=== PATIENT | female | born 2005 | race Hispanic/Latino ===

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

== ENCOUNTER 2024-12-25 22:33 | Emergency (ER) | payer MEDICAID ==
[~2024-12-25] VITALS: Ht 165.1 cm; Wt 130.2 kg
[2024-12-25 23:05] LABS: RAPID GROUP A STREP negative (NEGATIVE)
[2024-12-25 23:07] LABS: SARS-CoV-2, RNA, NAAT NEGATIVE SARS CoV-2 (NEGATIVE)
[2024-12-25 23:12] LABS: INFLUENZA TYPE A Negative For Type A (NEGATIVE); INFLUENZA TYPE B Negative For Type B (NEGATIVE)
[2024-12-25 23:30] LABS: APPEARANCE,URINE CLEAR (CLEAR); BILIRUBIN,URINE NEGATIVE (NEGATIVE); COLOR,URINE LIGHT-YELLOW (YELLOW); GLUCOSE, URINE (UA) NEGATIVE (NEGATIVE); HCG,QUALITATIVE URINE NEGATIVE (NEGATIVE); KETONES,URINE NEGATIVE (NEGATIVE); LEUKOCYTE ESTERASE ,URINE 25 Leu/uL (NEGATIVE); NITRATE,URINE NEGATIVE (NEGATIVE); OCCULT BLOOD,URINE MODERATE (NEGATIVE); PROTEIN,URINE NEGATIVE (NEGATIVE); UROBILINOGEN,URINE 0.2 mg/dL (0.2-1.0)
[2024-12-25 23:34] LABS: BACTERIA,URINE RARE /HPF (None Seen); MUCUS,URINE RARE LPF (None Seen); SQUAMOUS EPITHELIAL CELL,UR FEW /HPF (0-2)
--- NOTE | 2024-12-26 00:20 | HMCIMG ---
CHEST 1VW HISTORY: Pain COMPARISON: 04/30/2016 FINDINGS: A frontal projection of the chest was obtained. No acute pulmonary infiltrates is seen. The heart is normal in size. Prominent interstitial markings are seen. No evidence of aortic calcification is seen. IMPRESSION: 1. No acute pulmonary infiltrate is seen.
[2024-12-26 01:05] LABS: BASOPHILS # (AUTO) 0.02 K/uL (0.00-0.20); BASOPHILS % (AUTO) 0.2 % (0.0-5.0); HEMATOCRIT 40.9 % (36-48); IMMATURE GRANULOCYTE ABSOLUTE 0.08 K/uL (0-1); LYMPHOCYTES # (AUTO) 2.2 K/uL (1.0-4.8); LYMPHOCYTES % (AUTO) 23.5 % (21.0-51.0); MEAN CORPUSCULAR HEMOGLOBIN 26.2 pg (27.0-33.0); MEAN CORPUSCULAR HGB CONC 31.5 g/dL (32.0-36.0); MONOCYTES # (AUTO) 0.7 K/uL (0.1-1.0); NEUTROPHILS # (AUTO) 6.2 K/uL (1.8-7.7); NEUTROPHILS % (AUTO) 67.4 % (40.0-77.0); PLATELET COUNT (AUTO) 259 K/uL (130-400); RED BLOOD CELL COUNT(AUTO) 4.93 MIL/uL (4.00-5.50); RED CELL DISTRIBUTION WIDTH 13.8 % (11.0-15.5); WHITE BLOOD COUNT (AUTO) 9.1 K/uL (4.8-10.8)
[2024-12-26 01:21] VITALS: BP 125/70; PULSE 70; RESP 20; TEMP 98.7; O2SAT 100
[2024-12-26 01:42] LABS: CREATININE 0.8 mg/dL (0.5-1.0)
--- NOTE | 2024-12-26 01:51 | ERN ---
General Chief Complaint: Cough Stated Complaint: C/O COUGH, CONGESTION W/CHEST PRESSURE X 3 DAYS Time Seen by MD: 22:36 Time Seen by Midlevel: 22:36 Source: patient History of Present Illness Initial Comments 19-year-old female who presents to the emergency department due to flu-like symptoms. Patient reports she has been having cough, congestion and chest pain onset three days. She denies any fevers, abdominal pain, vomiting, dysuria or further associated symptoms. PMHx anxiety, depression, asthma Allergies: Coded Allergies: No Known Drug Allergies (Unverified Allergy, Unknown, 12/26/24) Past Medical History Past Medical History: Anxiety, Asthma, Bipolar, Depression, Schizophrenia Past Surgical History: None Female( History) LMP: Dec 24, 2024 ROS Dictation Constitutional: Negative for fever,chills, and weight loss Eyes: Negative for injury, pain,redness, and discharge ENT: Positive for congestion Negative for injury,pain or swelling Cardiovascular: Positive for chest pain Negative for palpitations, and edema Respiratory: Positive for cough Negative for shortness of breath, and wheezing, Abdomen/GI: Negative for abdominal pain, nausea, vomiting, diarrhea, and constipation Back: Negative for injury and pain : Negative for painful urination, bleeding or discharge MS/Extremity: Negative for injury and deformity Skin: Negative for rash, and discoloration Neuro: Negative for headache, weakness, numbness, tingling, and seizure Psych: Negative for suicide ideation, homicidal ideation, and hallucinations Physical Exam Physical Exam Dictation General: awake, alert, no acute distress Head/Face: Normocephalic, atraumatic Eyes: PERRL, EOMI, normal conjunctiva ENT: oral cavity clear, oral mucosa moist Neck: Supple, normal range of motion Cardiovascular: RRR, normal S1/S2 Respiratory: CTAB, no respiratory distress, no rales or wheezes Chest: Pain reproducible on palpation Abdomen: Soft, non-tender, non-distended, no guarding or rebound. Skin: Warm, dry, normal turgor, no rash MS/Extremity: Pulses equal, no cyanosis, neurovascular intact, FROM Neuro: COAx4, GCS 15, strength 5/5, CN 2-12 intact, normal cerebellar exam, normal gait Psych: Normal behavior, mood, and affect normal Results Laboratory and Microbiology Lab and Micro Result Laboratory Tests Test 12/25/24 22:42 12/25/24 23:18 12/26/24 00:54 Influenza Type A Antigen Negative For Type A Influenza Type B Antigen Negative For Type B SARS-CoV-2, RNA, NAAT NEGATIVE SARS CoV-2 Group A Streptococcus Rapid negative (NEGATIVE) Urine Color LIGHT-YELLOW (YELLOW) Urine Appearance CLEAR (CLEAR) Urine pH 6.0 (5.0-8.0) Urine Specific [place] 1.016 (1.001-1.031) Urine Protein NEGATIVE mg/dL (NEGATIVE) Urine Glucose (UA) NEGATIVE mg/dL (NEGATIVE) Urine Ketones NEGATIVE mg/dL (NEGATIVE) Urine Occult Blood MODERATE (NEGATIVE) H Urine Nitrate NEGATIVE (NEGATIVE) Urine Bilirubin NEGATIVE mg/dL (NEGATIVE) Urine Urobilinogen 0.2 mg/dL (0.2-1.0) Urine Leukocyte Esterase 25 Aly/uL (NEGATIVE) H Urine RBC 2-5 /HPF (0-1) H Urine WBC 6-10 /HPF (0-1) H Urine Squamous Epithelial Cells FEW /HPF (0-2) Urine Bacteria RARE /HPF (None Seen) Urine HCG, Qualitative NEGATIVE (NEGATIVE) White Blood Count 9.1 K/uL (4.8-10.8) Red Blood Count 4.93 MIL/uL (4.00-5.50) Hemoglobin 12.9 g/dL (12.0-16.0) Hematocrit 40.9 % (36-48) Mean Corpuscular Volume 83.0 fL (80-100) Mean Corpuscular Hemoglobin 26.2 pg (27.0-33.0) L Mean Corpuscular Hemoglobin Concent 31.5 g/dL (32.0-36.0) L Red Cell Distribution Width 13.8 % (11.0-15.5) Platelet Count 259 K/uL (130-400) Mean Platelet Volume 10.5 fL (7.5-10.5) Immature Granulocyte % (Auto) 0.9 % (0-1) Neutrophils (%) (Auto) 67.4 % (40.0-77.0) Lymphocytes (%) (Auto) 23.5 % (21.0-51.0) Monocytes (%) (Auto) 8.0 % (3.0-13.0) Eosinophils (%) (Auto) 0.0 % (0.0-8.0) Basophils (%) (Auto) 0.2 % (0.0-5.0) Neutrophils # (Auto) 6.2 K/uL (1.8-7.7) Lymphocytes # (Auto) 2.2 K/uL (1.0-4.8) Monocytes # (Auto) 0.7 K/uL (0.1-1.0) Eosinophils # (Auto) 0.00 K/uL (0.00-0.70) Basophils # (Auto) 0.02 K/uL (0.00-0.20) Absolute Immature Granulocyte (auto 0.08 K/uL (0-1) Nucleated Red Blood Cells 0.0 % (0.0-0.19) Sodium Level 140 mmol/L (136-145) Potassium Level 4.0 mmol/L (3.5-5.1) Chloride Level 107 mmol/L (101-111) Carbon Dioxide Level 21 mmol/L (21-32) Blood Urea Nitrogen 13 mg/dL (7-18) Creatinine 0.8 mg/dL (0.5-1.0) Glomerular Filtration Rate Calc 107 mL/min (>90) Random Glucose 96 mg/dL (70-105) Total Calcium 9.3 mg/dL (8.5-10.1) Troponin I High Sensitivity 6 ng/L (4-50) Labs Reviewed?: Yes EKG/XRAY/US/CT/MRI EKG Comment Date: 12/25/2024 Time: 2301 Rate: 92 EKG interpretation: Normal sinus rhythm, early repolarization pattern, no STEMI, normal EKG Reviewed by ED Attending X-RAY Comment REASON: Pain / pressure ORDERING PHYSICIAN: JOSE R POTTER PROCEDURE: CXR1VW - CHEST 1VW CHEST 1VW HISTORY: Pain COMPARISON: 04/30/2016 FINDINGS: A frontal projection of the chest was obtained. No acute pulmonary infiltrates is seen. The heart is normal in size. Prominent interstitial markings are seen. No evidence of aortic calcification is seen. IMPRESSION: 1. No acute pulmonary infiltrate is seen. DICTATED BY: STACIE DANIEL MD DATE: 12/26/24 0016 MDM MDM: Differential diagnosis: Influenza, viral illness, atypical chest pain, musculoskeletal chest pain Rationale: 19-year-old female who presents to the emergency department due to flu-like symptoms. Patient reports she has been having cough, congestion and chest pain onset three days. She denies any fevers, abdominal pain, vomiting, dysuria or further associated symptoms. PMHx anxiety, depression, asthma Per physical examination patient is in no acute distress, nonlabored breathing, chest pain reproducible on palpation. Labs obtained are nonspecific, troponin within normal limits. EKG within normal limits. Influenza, SARs, strep negative. UA indicates leukocytes WBCs with squamous epithelial cells and no bacteria. Chest x-ray obtained indicates no acute pulmonary infiltrates or acute findings. Heart score 0 Patient received acetaminophen in the ED. educated on findings and diagnosis. Advised to follow up with PCP. Return to the emergency department if any worsening symptoms. Patient verbalized understanding. Patient stable for discharge. There are no social concerns with this patient. I independently interpreted the test that were performed, results were reviewed by me and considered findings on radiology if ordered. Medical management and examination interpretation discussions were had by me with other qualified healthcare professionals as indicated for the patient's care. ED Course Orders Procedure Category Date Status Time Covid Rna Naat LAB 12/25/24 Complete 22:40 Influenza Type A & B, LAB 12/25/24 Complete Rapid 22:40 Rapid (Group A Strep) LAB 12/25/24 Complete 22:40 Cbc With Differential LAB 12/25/24 Complete 22:46 Troponin I High LAB 12/25/24 Complete Sensitivity 22:46 12 Lead Ekg Tracing- EKG 12/25/24 Logged Technical 22:46 Basic Metabolic Panel LAB 12/25/24 Complete 22:46 Chest 1vw RAD 12/25/24 Resulted 22:46 Urinalysis LAB 12/25/24 Complete W/Microscopic 22:46 ,Urine Test LAB 12/25/24 Complete 22:46 Culture Urine KEKE 12/25/24 In Process 23:35 Acetaminophen 500mg PHA 12/26/24 Complete Tab (Tylenol 500mg T 02:00 Current Medications Medications (Trade) Dose Ordered Sig/Yrn Route PRN Reason Start Time Stop Time Status Last Admin Dose Admin Acetaminophen (TYLenol 500MG TAB) 1,000 mg ONCE ONCE PO 12/26/24 02:00 12/26/24 02:01 DC 12/26/24 02:05 Vital Signs Date Time Temp Pulse Resp B/P (MAP) Pulse Ox O2 Delivery O2 Flow Rate FiO2 12/26/24 01:21 98.8 70 20 125/70 100 Room Air* 0 21 12/26/24 00:16 99.0 88 20 130/80 100 Room Air* 0 21 12/25/24 23:02 99.0 93 20 134/83 100 Room Air* 0 21 12/25/24 22:36 98.8 92 20 127/88 97 Room Air DX & DISP Disposition: Discharge Departure Impression: Primary Impression: Chest pain with low risk for cardiac etiology Additional Impressions: Viral illness, Musculoskeletal chest pain Condition: Stable Additional Instructions: Discharge home. Rest. Follow up with primary care DrKatelynn in 24 hours. Return to the ER for any acute changes or worsening symptoms. If any medications were prescribed take as directed. Okay to continue home medications unless otherwise discussed during your visit in the emergency room today. Patient was also advised to follow-up with primary care physician in 1 to 2 days for continued monitoring. Referrals: SELF,REFERRAL (PCP) I performed the substantive portion of the visit. I have reviewed and personally made and approve the management plan that is documented in the notes by myself or the DOUGLAS. I acknowledge full responsibility for the patient's management plan. JOSE R POTTER Dec 26, 2024 01:51
[2024-12-26] MEDS: acetaMINOPHEN 500 MG TABLET PO ONE (02:05)
--- NOTE | 2024-12-26 06:37 | EKG ---
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
== END 2024-12-26 02:08 | disposition home or self-care (01) ==
LOC: EDH 22:33
DX: R07.89 Other chest pain (principal); B34.9 Viral infection, unspecified; F20.9 Schizophrenia, unspecified; J45.909 Unspecified asthma, uncomplicated; Z20.822 Contact with and (suspected) exposure to COVID-19
CPT/HCPCS: 36415; 71045; 80048; 81001; 81025; 84484; 85025; 87086; 87635; 87804; 87880; 93005; 99285

== ENCOUNTER 2025-01-31 22:56 | Emergency (ER) | payer MEDICAID ==
[~2025-01-31] VITALS: Ht 165.1 cm; Wt 133.8 kg
--- NOTE | 2025-01-31 23:01 | NUR ---
UA CUP PROVIDED
[2025-01-31 23:39] LABS: BASOPHILS # (AUTO) 0.02 K/uL (0.00-0.20); BASOPHILS % (AUTO) 0.2 % (0.0-5.0); LYMPHOCYTES # (AUTO) 1.9 K/uL (1.0-4.8); LYMPHOCYTES % (AUTO) 18.9 % (21.0-51.0); MEAN CORPUSCULAR VOLUME 81.3 fL (80-100); MONOCYTES # (AUTO) 0.6 K/uL (0.1-1.0); MONOCYTES % (AUTO) 6.1 % (3.0-13.0); NEUTROPHILS # (AUTO) 7.3 K/uL (1.8-7.7); NEUTROPHILS % (AUTO) 73.8 % (40.0-77.0); PLATELET COUNT (AUTO) 298 K/uL (130-400); RED BLOOD CELL COUNT(AUTO) 5.04 MIL/uL (4.00-5.50); WHITE BLOOD COUNT (AUTO) 9.9 K/uL (4.8-10.8)
[2025-01-31 23:44] LABS: APPEARANCE,URINE CLEAR (CLEAR); BILIRUBIN,URINE NEGATIVE (NEGATIVE); COLOR,URINE COLORLESS (YELLOW); GLUCOSE, URINE (UA) NEGATIVE (NEGATIVE); KETONES,URINE NEGATIVE (NEGATIVE); LEUKOCYTE ESTERASE ,URINE NEGATIVE Leu/uL (NEGATIVE); NITRATE,URINE NEGATIVE (NEGATIVE); OCCULT BLOOD,URINE NEGATIVE (NEGATIVE); PROTEIN,URINE NEGATIVE (NEGATIVE); UROBILINOGEN,URINE 0.2 mg/dL (0.2-1.0)
[2025-01-31 23:46] LABS: CREATININE 0.6 mg/dL (0.5-1.0); HCG,QUALITATIVE URINE NEGATIVE (NEGATIVE); POTASSIUM 3.7 mmol/L (3.5-5.1)
[2025-01-31 23:47] LABS: ADD UA MICROSCOPIC NO
--- NOTE | 2025-02-01 00:01 | NUR ---
PT SITTING IN LOBBY AGAINST WINDOWS. GOOD EVEN CHEST RISE AND FALL OBSERVED
[2025-02-01 00:02] LABS: B-TYPE NATRIURETIC PEPTIDE < 5 pg/mL (0-100)
[2025-02-01] MEDS ORDERED: ONDA-243 PO (00:48)
[2025-02-01] MEDS ORDERED: OMEP40CA21 PO (00:48)
--- NOTE | 2025-02-01 00:54 | ERN ---
ED Note History of Present Illness Stated Complaint: CHEST PAIN, HIGH BP Chief Complaint: Chest Pain Time Seen by MD: 22:58 Time Seen by Midlevel: 23:30 Dictation: Ms. Mendieta 19-year-old female with history of depression, schizophrenia, and obesity who presented to the emergency department this evening for evaluation of chest pain. She reports one week of intermittent chest/epigastric pain which became worse today. She said she had nausea with emesis x2 earlier today. She states she went seen at [facility] earlier today and her blood pressure was elevated. She states she believes her symptoms are from drinking 2 L of soda per day she denies having fever, chills, shortness of breath, cough, palpitations, edema, abdominal pain, hematemesis, melena, hematochezia, dysuria, headache, or dizziness. Allergies: Coded Allergies: No Known Drug Allergies (Unverified Allergy, Unknown, 12/26/24) Penicillins (Unverified Allergy, Unknown, 01/31/25) olanzapine (Unverified Allergy, Unknown, 01/31/25) Past Medical History Past Medical History: Anxiety, Asthma, Bipolar, Depression, Schizophrenia Surgical History: Tonsillectomy, None Social History: Negative LMP: Jan 08, 2025 RN Note Reviewed/Agreed w/PFSH: Yes Review of System Dictation REVIEW OF SYSTEMS: CONSTITUTIONAL: Patient denies fevers, chills, sweats and weight changes. EYES: Patient denies any visual symptoms. EARS, NOSE, AND THROAT: No difficulties with hearing. No symptoms of rhinitis or sore throat. CARDIOVASCULAR: Patient denies, palpitations, orthopnea and paroxysmal nocturnal dyspnea. Reports chest pain RESPIRATORY: No dyspnea on exertion, no wheezing or cough. GI: No diarrhea, constipation, hematochezia or melena. Reports epigastric/upper abdominal pain with nausea and emesis x2 : No urinary hesitancy or dribbling. No nocturia or urinary frequency. No abnormal urethral discharge. MUSCULOSKELETAL: No myalgias or arthralgias. NEUROLOGIC: No chronic headaches, no seizures. Patient denies numbness, tingling or weakness. PSYCHIATRIC: Patient denies problems with mood disturbance. Reports increased anxiety ENDOCRINE: No excessive urination or excessive thirst. DERMATOLOGIC: Patient denies any rashes or skin changes. Initial Vital Sign VS Vital Signs Date Time Temp Pulse Resp B/P (MAP) Pulse Ox O2 Delivery O2 Flow Rate FiO2 01/31/25 22:58 99.0 105 20 152/90 97 Room Air Physical Exam Dictation Vital signs: Reviewed. Afebrile Constitutional: No acute distress. Non-toxic appearing. Head/Face: Normocephalic, atraumatic. Eyes: Periorbital areas with no swelling, redness, or edema. Lids and lashes are normal. Conjunctival injection is absent. Sclera anicteric. Pupils equal, round, reactive to light. ENT: Pinnas intact and no signs of trauma or erythema. Ear canals clear and no discharge. TMs no erythema. No nasal discharge or bleeding noted. Oropharynx with no exudate, redness, swelling, masses, exudates, or evidence of obstruction. Uvula midline. Mucous membranes moist. Neck: Trachea midline, no masses palpated, and no cervical lymphadenopathy. No swelling. Supple, full range of motion. Chest/Axilla: No tenderness, no crepitus, no paradoxical movement, no retractions. Cardiovascular: Regular rate, regular rhythm, no murmur, no gallops. Symmetric pulses. No peripheral edema. 12 lead EKG reflects sinus tachycardia without ST elevation or depression. BP elevated 152/90. Respiratory: Respirations even and unlabored. Lung sounds clear; no wheezes, rales or rhonchi. Room air SpO2 98% Gastrointestinal: Obese. No distention is appreciated. Bowel sounds are normal. No mass or organomegaly . There is no tenderness. No rebound. No rigidity. No voluntary or involuntary guarding. No Lombardi's sign. Neurological: Normal speech, gross motor function intact, gross sensory function intact. No focal weakness/Paresthesia. Musculoskeletal/Extremities: All extremities have full range of motion, no pain or tenderness on palpation. Symmetric pulses. Integumentary: Intact. Skin is normal color, warm and dry. Cap refill less than 2 seconds. Results (Laboratory/Radiology) Laboratory/Radiology Laboratory Tests Test 01/31/25 23:29 White Blood Count 9.9 K/uL (4.8-10.8) Red Blood Count 5.04 MIL/uL (4.00-5.50) Hemoglobin 13.1 g/dL (12.0-16.0) Hematocrit 41.0 % (36-48) Mean Corpuscular Volume 81.3 fL (80-100) Mean Corpuscular Hemoglobin 26.0 pg (27.0-33.0) L Mean Corpuscular Hemoglobin Concent 32.0 g/dL (32.0-36.0) Red Cell Distribution Width 15.0 % (11.0-15.5) Platelet Count 298 K/uL (130-400) Mean Platelet Volume 10.8 fL (7.5-10.5) H Immature Granulocyte % (Auto) 1.0 % (0-1) Neutrophils (%) (Auto) 73.8 % (40.0-77.0) Lymphocytes (%) (Auto) 18.9 % (21.0-51.0) L Monocytes (%) (Auto) 6.1 % (3.0-13.0) Eosinophils (%) (Auto) 0.0 % (0.0-8.0) Basophils (%) (Auto) 0.2 % (0.0-5.0) Neutrophils # (Auto) 7.3 K/uL (1.8-7.7) Lymphocytes # (Auto) 1.9 K/uL (1.0-4.8) Monocytes # (Auto) 0.6 K/uL (0.1-1.0) Eosinophils # (Auto) 0.00 K/uL (0.00-0.70) Basophils # (Auto) 0.02 K/uL (0.00-0.20) Absolute Immature Granulocyte (auto 0.10 K/uL (0-1) Nucleated Red Blood Cells 0.0 % (0.0-0.19) Urine Color COLORLESS (YELLOW) Urine Appearance CLEAR (CLEAR) Urine pH 7.0 (5.0-8.0) Urine Specific [place] 1.008 (1.001-1.031) Urine Protein NEGATIVE mg/dL (NEGATIVE) Urine Glucose (UA) NEGATIVE mg/dL (NEGATIVE) Urine Ketones NEGATIVE mg/dL (NEGATIVE) Urine Occult Blood NEGATIVE (NEGATIVE) Urine Nitrate NEGATIVE (NEGATIVE) Urine Bilirubin NEGATIVE mg/dL (NEGATIVE) Urine Urobilinogen 0.2 mg/dL (0.2-1.0) Urine Leukocyte Esterase NEGATIVE Aly/uL Urine HCG, Qualitative NEGATIVE (NEGATIVE) Sodium Level 143 mmol/L (136-145) Potassium Level 3.7 mmol/L (3.5-5.1) Chloride Level 109 mmol/L (101-111) Carbon Dioxide Level 22 mmol/L (21-32) Blood Urea Nitrogen 7 mg/dL (7-18) Creatinine 0.6 mg/dL (0.5-1.0) Glomerular Filtration Rate Calc 131 mL/min (>90) Random Glucose 108 mg/dL (70-105) H Total Calcium 8.8 mg/dL (8.5-10.1) Total Creatine Kinase 66 U/L (21-232) Troponin I High Sensitivity < 4 ng/L (4-50) L B-Type Natriuretic Peptide < 5 pg/mL (0-100) Labs Reviewed?: Yes EKG Comment: EKG Interpretation: Time Reviewed: 2258 Normal sinus rhythm Ventricular rate: 100 [] bpm UT Interval: [152] ms QRS duration: [103] ms No ST segment elevation or depression. Clinical impression: Sinus rhythm EKG Reviewed and interpreted by Dr. Jim X-RAY Comment: Chest x-ray unremarkable with clear lung nix as interpreted by myself ED Course ED Course Orders Procedure Category Date Status Time Vital Signs Per CPOE 01/31/25 Transmitted Routine 22:58 B-Type Natriuretic LAB 01/31/25 Complete Peptide 22:58 Chest 1vw RAD 01/31/25 Taken 22:58 12 Lead Ekg Tracing- EKG 01/31/25 Logged Technical 22:58 Oxygen By Nc/Pulse Ox CPOE 01/31/25 Transmitted 22:58 Maintain Iv CPOE 01/31/25 Transmitted 22:58 Iv Insertion CPOE 01/31/25 Transmitted 22:58 Cardiac Monitoring CPOE 01/31/25 Transmitted 22:58 Pulse Oximetry With CPOE 01/31/25 Transmitted Vs And Prn 22:58 Cbc With Differential LAB 01/31/25 Complete 22:58 Activity: Br W/Brp CPOE 01/31/25 Transmitted With Assist 22:58 Creatine Kinase, Total LAB 01/31/25 Complete 22:58 Troponin I High LAB 01/31/25 Complete Sensitivity 22:58 Urinalysis Profile LAB 01/31/25 Complete 22:58 Basic Metabolic Panel LAB 01/31/25 Complete 22:58 ,Urine Test LAB 01/31/25 Complete 22:58 Vital Signs Date Time Temp Pulse Resp B/P (MAP) Pulse Ox O2 Delivery O2 Flow Rate FiO2 01/31/25 22:58 99.0 105 20 152/90 97 Room Air Uneventful ED course. Initial blood pressure with slight elevation at 152/90. Twelve lead EKG reflects a sinus rhythm/sinus tachycardia without ST elevation. Laboratory findings as noted below. Troponin negative. UA clear. HCG negative. She received GI cocktail. She states, pain decreased. Findings were discussed with patient and all questions answered. HEART Score Response (Comments) Value History: Moderate suspicion (+1) 1 EKG: Normal 0 Age: < 45yrs (0) 0 Risk Factors: No known risk factors (0) 0 Initial Troponin: Normal limit (0) 0 HEART Score Risk: Low Risk for MACE (1-3) Total 1 Medical Decision Making MDM MDM: Differential diagnosis: ACS, anxiety, gastritis Rationale: Tests considered and ordered secondary to shared decision making include: EKG, lab, chest x-ray Previous outside records reviewed: Old ER visits. Risk of complication and/or morbidity or mortality of patient management: None Medications-Per medication reconciliation Need for hospitalization: Patient does not meet criteria for hospitalization. Need for emergency major/minor surgery: No There are no social concerns with this patient. Prescription drug management: Zofran, omeprazole Prescriptions will include symptomatic care Patient's prior external medical records from other ER visits were reviewed by me as indicated. Prior testing and results from previous visits were reviewed. Prior tests were taken into account with medical decision making and resource utilization, independent historian/historians were used to obtain complete medical history. I independently interpreted the test that were performed, results were reviewed by me and considered findings on radiology if ordered. Medical management and examination interpretation discussions were had by me with other qualified healthcare professionals as indicated for the patient's care. DX & DISP Disposition: Discharge Departure Impression: Primary Impression: Epigastric pain Additional Impressions: Elevated blood pressure reading, Anxiety Condition: Stable Scripts Ondansetron (Ondansetron Odt) 4 Mg Tab.rapdis 4 MG PO Q6HPRN PRN for nausea, #15 TAB 0 Refills Prov: MAGDALENO SOLITARIO NP 02/01/25 Omeprazole (Omeprazole) 40 Mg Capsule.dr 1 CAP PO DAILY for 30 Days, #30 CAP 0 Refills Prov: MAGDALENO SOLITARIO [facility] DIRECT[facility] 02/01/25 Additional Instructions: Rest. Drink plenty of fluids. Avoid sodas/caffeinated beverages. [place] diet for the next few days. Start omeprazole daily for gastric reflux. May take Zofran ODT every 6 hours as needed for nausea. Keep a log of your blood pressures. Follow up with your PCP early next week. Return to the emergency department for any worsening of symptoms or concerns. Referrals: SELF,REFERRAL (PCP) Time of Disposition: 00:49 MAGDALENO SOLITARIO NP February 01, 2025 00:54
--- NOTE | 2025-02-01 00:57 | NUR ---
PT CALLED FOR MEDICATION ADMINISTRATION, NO ANSWER. NOT IN LOBBY OR MAIN ER
--- NOTE | 2025-02-01 01:12 | NUR ---
PT CALLED, NOT IN MAIN ER OR LOBBY. DID NOT COMMUNICATE ON DESIRE TO LEAVE
--- NOTE | 2025-02-01 01:26 | NUR ---
PT CALLED, NO ANSWER
--- NOTE | 2025-02-01 01:28 | NUR ---
PT LOCATED. RIDGE LIANG AWARE
[2025-02-01 01:29] VITALS: BP 144/89; PULSE 88; RESP 16; TEMP 98.2; O2SAT 99
[2025-02-01] MEDS: LIDOCAINE HCL 2% VISCOUS 15 ML UDCUP PO ONE (01:37)
[2025-02-01] MEDS: MAG/ALUM/SIMETH 30 ML UDCUP PO ONE (01:37)
[2025-02-01] MEDS: DICYCLOMINE HCL 10 MG/5 ML ML PO ONE (01:37)
--- NOTE | 2025-02-01 08:53 | HMCIMG ---
PORTABLE CHEST RADIOGRAPH INDICATION: CHEST PAIN COMPARISON: 12/26/2024 FINDINGS: Heart size is normal. The pulmonary vascularity and cruz appear normal. No abnormal pulmonary parenchymal opacity or consolidation identified. No significant pleural effusion noted. No pneumothorax detected. IMPRESSION: No radiographic evidence for any acute cardiopulmonary process.
--- NOTE | 2025-02-01 09:41 | EKG ---
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
== END 2025-02-01 01:45 | disposition home or self-care (01) ==
LOC: EDH 22:56
DX: F41.9 Anxiety disorder, unspecified (principal); R10.13 Epigastric pain; R03.0 Elevated blood-pressure reading, without diagnosis of hypertension; F20.9 Schizophrenia, unspecified; J45.909 Unspecified asthma, uncomplicated; Z88.0 Allergy status to penicillin; Z90.89 Acquired absence of other organs
CPT/HCPCS: 36415; 71045; 80048; 81003; 81025; 82550; 83880; 84484; 85025; 93005; 99285

== ENCOUNTER 2025-06-25 13:14 | Emergency (ER) | payer MEDICAID ==
[~2025-06-25] VITALS: Ht 165.1 cm; Wt 115.7 kg
[~2025-06-25 13:14] MED LIST: OMEP40CA21 PO; ONDA-243 PO
--- NOTE | 2025-06-25 13:35 | ERN ---
ED Note History of Present Illness Stated Complaint: OTHER Chief Complaint: Other Problems Time Seen by MD: 13:18 Time Seen by Midlevel: 13:20 Dictation: 20-year-old female coming in with complaints of vaginal bleeding onset today, does not know her last menstrual period, also stating she has been eating out little bit of blood in food. Patient states all this started today. Patient is adamant that she wants blood to be drawn to check for kidney failure. I asked the patient why she thinks she has kidney failure I asked her if she has any decreased urine output, back pain, dysuria, hematuria patient denies all these symptoms. Allergies: Coded Allergies: Penicillins (Unverified Allergy, Unknown, 01/31/25) olanzapine (Unverified Allergy, Unknown, 01/31/25) Home Meds Active Scripts Ondansetron (Ondansetron Odt) 4 Mg Tab.rapdis, 4 MG PO Q6HPRN PRN for nausea, #15 TAB 0 Refills Prov:MAGDALENO [facility] 02/01/25 Omeprazole (Omeprazole) 40 Mg Capsule.dr, 1 CAP PO DAILY for 30 Days, #30 CAP 0 Refills Prov:MAGDALENO [facility] 02/01/25 Past Medical History Past Medical History: Bipolar, Other Additional Past Medical Hx: SCHIZOPHRENIA Surgical History: Tonsillectomy Social History: Negative Review of System Dictation Constitutional: Negative for fever,chills, and weight loss Eyes: Negative for injury, pain,redness, and discharge ENT: Negative for injury,pain or swelling Cardiovascular: Negative for chest pain, palpitations, and edema Respiratory: Negative for shortness of breath, cough, and wheezing, Abdomen/GI: Negative for abdominal pain, nausea, vomiting, diarrhea, and constipation Back: Negative for injury and pain : Negative for injury, bleeding and discharge MS/Extremity: Negative for injury and deformity Skin: Negative for rash, and discoloration Neuro: Negative for headache, weakness, numbness, tingling, and seizure Psych: Negative for suicide ideation, homicidal ideation, and hallucinations Review of Systems: was completed Initial Vital Sign VS Vital Signs Date Time Temp Pulse Resp B/P (MAP) Pulse Ox O2 Delivery O2 Flow Rate FiO2 06/25/25 13:18 98.4 97 18 127/81 97 Room Air 0 06/25/25 15:20 21 Physical Exam Dictation General: awake, alert, NAD Head/Face: Normocephalic, atraumatic Eyes: PERRL, EOMI, vision at baseline ENT: oral cavity clear, TMs clear, no signs of infection Neck: Trachea midline, supple, no nuchal rigidity Cardiovascular: RRR, normal S1/S2, No MRGs, no JVD Respiratory: CTAB, no respiratory distress, No rales or wheezes Abdomen: Soft, non-tender, non-distended, normal bowel sounds, no guarding or rebound. Skin: Warm, dry, normal turgor, no rash MS/Extremity: Pulses equal, no cyanosis, neurovascular intact, FROM Neuro: COAx4, GCS 15, strength 5/5, CN 2-12 intact, normal cerebellar exam, normal gait, Psych: Normal behavior, mood, and affect normal Results (Laboratory/Radiology) Laboratory/Radiology Laboratory Tests Test 06/25/25 13:42 06/25/25 14:52 White Blood Count 9.3 K/uL (4.8-10.8) Red Blood Count 5.37 MIL/uL (4.00-5.50) Hemoglobin 14.5 g/dL (12.0-16.0) Hematocrit 46.6 % (36-48) Mean Corpuscular Volume 86.8 fL (79-99) Mean Corpuscular Hemoglobin 27.0 pg (27.0-33.0) Mean Corpuscular Hemoglobin Concent 31.1 g/dL (32.0-36.0) L Red Cell Distribution Width 15.7 % (11.0-15.5) H Platelet Count 237 K/uL (130-400) Mean Platelet Volume 11.6 fL (7.5-10.5) H Immature Granulocyte % (Auto) 0.3 % (0-1) Neutrophils (%) (Auto) 80.7 % (40.0-77.0) H Lymphocytes (%) (Auto) 12.3 % (21.0-51.0) L Monocytes (%) (Auto) 6.5 % (3.0-13.0) Eosinophils (%) (Auto) 0.0 % (0.0-8.0) Basophils (%) (Auto) 0.2 % (0.0-5.0) Neutrophils # (Auto) 7.5 K/uL (1.8-7.7) Lymphocytes # (Auto) 1.1 K/uL (1.0-4.8) Monocytes # (Auto) 0.6 K/uL (0.1-1.0) Eosinophils # (Auto) 0.00 K/uL (0.00-0.70) Basophils # (Auto) 0.02 K/uL (0.00-0.20) Absolute Immature Granulocyte (auto 0.03 K/uL (0-1) Nucleated Red Blood Cells 0.0 % (0.0-0.19) Sodium Level 142 mmol/L (136-145) Potassium Level 3.5 mmol/L (3.5-5.1) Chloride Level 109 mmol/L (101-111) Carbon Dioxide Level 21 mmol/L (21-32) Blood Urea Nitrogen 6 mg/dL (7-18) L Creatinine 0.7 mg/dL (0.5-1.0) Glomerular Filtration Rate Calc 125 mL/min (>90) Random Glucose 107 mg/dL (70-105) H Total Calcium 9.0 mg/dL (8.5-10.1) Human Chorionic Gonadotropin, Quant 0 mIU/mL (0-5) Urine Color YELLOW (YELLOW) Urine Appearance CLEAR (CLEAR) Urine pH 6.5 (5.0-8.0) Urine Specific [place] 1.018 (1.001-1.031) Urine Protein 10 mg/dL (NEGATIVE) H Urine Glucose (UA) NEGATIVE mg/dL (NEGATIVE) Urine Ketones 5 mg/dL (NEGATIVE) H Urine Occult Blood LARGE (NEGATIVE) H Urine Nitrate NEGATIVE (NEGATIVE) Urine Bilirubin NEGATIVE mg/dL (NEGATIVE) Urine Urobilinogen 0.2 mg/dL (0.2-1.0) Urine Leukocyte Esterase NEGATIVE Aly/uL Urine RBC 51-100 /HPF (0-1) H Urine WBC 11-25 /HPF (0-1) H Urine Squamous Epithelial Cells RARE /HPF (0-2) Urine Bacteria RARE /HPF (None Seen) ED Course ED Course Orders Procedure Category Date Status Time Cbc With Differential LAB 06/25/25 Complete 13:32 Basic Metabolic Panel LAB 06/25/25 Complete 13:32 Urinalysis Profile LAB 06/25/25 Complete 13:32 Hcg,Quantitative LAB 06/25/25 Complete 13:32 Culture Urine KEKE 06/25/25 In Process 15:25 Vital Signs Date Time Temp Pulse Resp B/P (MAP) Pulse Ox O2 Delivery O2 Flow Rate FiO2 06/25/25 15:20 98.4 88 18 121/76 97 Room Air* 0 21 06/25/25 13:18 98.4 97 18 127/81 97 Room Air 0 Medical Decision Making MDM MDM: 20-year-old female coming in with complaints of vaginal bleeding onset today, does not know her last menstrual period, also stating she has been eating out little bit of blood" in spit. Patient states all this started today. Patient is adamant that she wants blood to be drawn to check for kidney failure. I asked the patient why she thinks she has kidney failure I asked her if she has any decreased urine output, back pain, dysuria, hematuria patient denies all these symptoms. Blood work all is unremarkable. Discussed findings with the patient. Educated her vaginal bleeding patient has been her menstrual cycle and that is spitting of blood could be related to some irritation in her throat. Patient educated on signs and symptoms of when to return back to the emergency room and follow up with PCP in 2-3 days. Differential diagnosis: Menstrual cycle, pharyngitis Rationale: Tests considered and ordered secondary to shared decision making inc lude: Previous outside records reviewed: Old ER visits. Risk of complication and/or morbidity or mortality of patient management: None Medications-Per medication reconciliation Need for hospitalization: Patient does not meet criteria for hospitalization. Need for emergency major/minor surgery: No There are no social concerns with this patient. Prescription drug management Prescriptions will include symptomatic care Patient's prior external medical records from other ER visits were reviewed by me as indicated. Prior testing and results from previous visits were reviewed. Prior tests were taken into account with medical decision making and resource utilization, independent historian/historians were used to obtain complete medical history. I independently interpreted the test that were performed, results were reviewed by me and considered findings on radiology if ordered. Medical management and examination interpretation discussions were had by me with other qualified healthcare professionals as indicated for the patient's care. DX & DISP Disposition: Discharge Departure Impression: Primary Impression: Late menses Condition: Stable Additional Instructions: Please follow up with the primary care provider in 1-2 days. Do blood work is normal. Your kidney function is normal. Return to the hospital as needed. Referrals: SELF,REFERRAL (PCP) Time of Disposition: 14:40 I have reviewed the case, and I agree with, Diagnosis and Plan DORIAN CRANDALL Jun 25, 2025 13:35 ROLANDO BAEZ DO Jun 25, 2025 15:59
[2025-06-25 13:52] LABS: IMMATURE GRANULOCYTE ABSOLUTE 0.03 K/uL (0-1); NUCLEATED RED BLOOD CELLS 0.0 % (0.0-0.19); PLATELET COUNT (AUTO) 237 K/uL (130-400); RED BLOOD CELL COUNT(AUTO) 5.37 MIL/uL (4.00-5.50); RED CELL DISTRIBUTION WIDTH 15.7 % (11.0-15.5); WHITE BLOOD COUNT (AUTO) 9.3 K/uL (4.8-10.8)
[2025-06-25 14:02] LABS: CREATININE 0.7 mg/dL (0.5-1.0); GLOMERULAR FILTR. RATE CALC 125.0 mL/min (>90); GLUCOSE,RANDOM 107.0 mg/dL (70-105); SODIUM SERUM 142.0 mmol/L (136-145); UREA NITROGEN, BLOOD 6.0 mg/dL (7-18)
[2025-06-25 14:13] LABS: HCG,QUANTITATIVE 0.0 mIU/mL (0-5)
[2025-06-25 15:01] LABS: APPEARANCE,URINE CLEAR (CLEAR); GLUCOSE, URINE (UA) NEGATIVE (NEGATIVE); LEUKOCYTE ESTERASE ,URINE NEGATIVE Leu/uL (NEGATIVE); NITRATE,URINE NEGATIVE (NEGATIVE); OCCULT BLOOD,URINE LARGE (NEGATIVE)
[2025-06-25 15:04] LABS: ADD UA MICROSCOPIC YES
[2025-06-25 15:06] LABS: SQUAMOUS EPITHELIAL CELL,UR RARE /HPF (0-2)
[2025-06-25 15:20] VITALS: BP 121/76; PULSE 88; RESP 18; TEMP 98.4; O2SAT 97
== END 2025-06-25 15:30 | disposition home or self-care (01) ==
LOC: EDH 13:14
DX: N91.0 Primary amenorrhea (principal); F31.9 Bipolar disorder, unspecified; F20.9 Schizophrenia, unspecified; Z90.89 Acquired absence of other organs; Z88.0 Allergy status to penicillin; Z79.899 Other long term (current) drug therapy
CPT/HCPCS: 36415; 80048; 81001; 84702; 85025; 87086; 99283